=== PATIENT | male | born 1970 | race Caucasian/White ===

== ENCOUNTER 2016-10-31 14:34 | Inpatient (IN) | payer OTHER ==
[2016-10-31] VITALS (16 sets, daily range): BP systolic 85–144; BP diastolic 52–116
[~2016-10-31] VITALS: Ht 185.4 cm; Wt 267.7 kg
--- NOTE | ~2016-10-31 | HC ---
[facility] [place] [address] CONSULTATION Name: KURTZTAYLOR Room #: 435-P [facility] IN M.R.#: [id number] Admission: 10/31/16 Attend Phys: Aron Conklin DO Discharge: Date of : 66 Report #: [id number] THIS REPORT FOR: //name// CC: FAM unknown Aron Conklin REASON FOR CONSULTATION: I was asked to evaluate concerning sepsis, leukocytosis, left lower extremity cellulitis with chronic venous stasis disease and lymphedema. HISTORY OF PRESENT ILLNESS: The patient was a 46-year-old morbidly obese gentamicin with chronic lymphedema in both lower extremities, left greater than right. He states that he has had recurring cellulitis in the left lower extremity for years. His last treatment was approximately 6 months ago. He is allergic to PENICILLIN, but tolerates cephalosporins. Typically, he states when it flares up he gets a couple of shots ceftriaxone and improves. He has also been on Z-MAXIMINO with improvement. Last evening, he developed fever and shaking chills. He presented to [facility] and transferred to [facility] for further treatment. He has been tachycardic. Mental status has remained normal. He has had intermittent nonproductive cough. No chest pain. No nausea, vomiting or diarrhea. No dysuria or frequency. ALLERGIES: PENICILLIN, MUCINEX. He does tolerate cephalosporins. MEDICATIONS: As noted on his MAR, which was reviewed. He did receive ceftriaxone. He has also received vancomycin. PAST MEDICAL HISTORY: Hypertension, morbid obesity, stroke, left eye blindness, diabetes, gastroesophageal reflux, chronic back pain, osteoarthritis, obstructive sleep apnea. FAMILY HISTORY: Noncontributory. SOCIAL HISTORY: He is disabled, peterson. Nonsmoker, no significant alcohol intake. REVIEW OF SYSTEMS: Noted above. PHYSICAL EXAMINATION: VITAL SIGNS: Afebrile. Blood pressure 100-110 range, blood pressure is stable, did drop down in the 80 systolic initially. He remains on 2 liters of oxygen per nasal cannula. He is voiding and has received over 4 liters of fluid in the last 12 hours. GENERAL: He was alert and cooperative. No acute distress. Morbidly obese. HEENT: Unremarkable. Blindness in the left eye. Mouth was unremarkable. NECK: Supple. LUNGS: Clear, decreased breath sounds bilaterally. [facility] [address] [place] [address] CONSULTATION Name: TAYLOR KURTZ Jac Room #: [facility] IN M.R.#: [id number] Admission: 10/31/16 Attend Phys: Aron Conklin DO Discharge: Date of : 66 Report #: [id number] HEART: Regular, without murmur. ABDOMEN: Obese, soft, nontender, no hepatosplenomegaly or mass. Large abdominal pannus with mild anterior intertrigo. EXTREMITIES: 2+ edema on the right lower extremity with chronic venous stasis dermatitis changes. Left lower extremity had 4+ edema with cellulitis involving the left thigh. This area was mildly tender. I could not appreciate any fluctuance. There was no significant tenderness in the groin region. NEUROLOGIC: Otherwise nonfocal. LABORATORY STUDIES: Ultrasound of bilateral lower extremities showed no evidence of DVT. Lactate 1.1, sodium 132, potassium 3.7, bicarbonate 26, creatinine 1.2. Bilirubin 2.3. Liver function tests otherwise normal. Hemoglobin 12.9. WBC is 17, platelet count 176,000. Urinalysis unremarkable. BNP 1491. Chest x-ray, basilar atelectasis. IMPRESSION: A 46-year-old morbidly obese gentleman with chronic venous stasis lymphedema of both lower extremities, now with cellulitis and likely lymphangitis of left lower extremity. In addition to this, he has elevated bilirubin, unclear if this is a new process or possibly ____ hyperbilirubinemia. PLAN: Recommend continuing ceftriaxone while awaiting culture results. Obtain differential on the CBC. Follow liver function tests. Advise weight loss. Consider further cardiac evaluation. <ELECTRONICALLY SIGNED> By: Cam Pichardo MD 11/01/16 1310 [id number] Cam Pichardo MD /nt
--- NOTE | ~2016-10-31 | H ---
[facility] [place] [address] HISTORY AND PHYSICAL Name: TAYLOR KURTZ Room #: 435-P ADM IN M.R.#: [id number] Admission: 10/31/16 Attend Phys: Aron Conklin DO Discharge: Date of : 66 Report #: [id number] THIS REPORT FOR: //name// CC: FAM unknown Aron Conklin DATE OF SERVICE: 10/31/2016 DATE OF SERVICE: 10/31/2016 ATTENDING PHYSICIAN: Alexandria Cancino MD PRIMARY CARE PHYSICIAN: Aron Garcia MD CHIEF COMPLAINT: Fevers. HISTORY OF PRESENT ILLNESS: The patient is a 46-year-old morbidly obese male who weighs over 500 pounds. He presented at [facility] today complaining of chills. He said the chills started last night and he had to sleep under multiple layers of blankets and heating pad and was still having chills. Because of this, he did not sleep well all night. He assumed he was having fevers, but he does not have a thermometer at home. He denies any changes in his cough. He does have some chronic cough that occurs whenever he lies flat. He does have some chronic dyspnea, denies any increasing shortness of breath. He denies any recent vomiting or diarrhea. He denies any new pains in his extremities. He was initially evaluated at [facility], but it sounds like they were not going to be able to meet his bariatric needs. So they transferred him here for further evaluation. He was started on broad spectrum antibiotics prior to transfer. On arrival to the ICU here, his vitals were stable and he is able to answer most questions. His main complaint at this time is that he cannot use a regular bathroom to urinate. He states he has a hard time using a urinal because of his size. PAST MEDICAL HISTORY: Hypertension, CVA with blindness in the left eye, diabetes, GERD, chronic back pain, osteoarthritis, obstructive sleep apnea. PAST SURGICAL HISTORY: None. ALLERGIES: PENICILLIN AND MUCINEX. HOME MEDICATIONS: Amlodipine 5 mg p.o. in the morning and 10 mg p.o. at bedtime, potassium 10 mEq daily, Lasix 20 mg b.i.d., omeprazole 20 mg p.o. b.i.d., metformin is 500 mg p.o. daily. SOCIAL HISTORY: The patient lives at home with his children. He is single. He works as a peterson still. He is a never smoker, drinks alcohol rarely, maybe [facility] [address] [place] [address] HISTORY AND PHYSICAL Name: TAYLOR KURTZ Room #: 435-P [facility] IN [facility]#: [id number] Admission: 10/31/16 Attend Phys: Aron Conklin DO Discharge: Date of : 66 Report #: [id number] once a year. Denies any drug use. FAMILY HISTORY: Significant for heart disease and diabetes in his mother who is alive. His father is alive, but he does not keep in contact with him. REVIEW OF SYSTEMS: The patient says he always experiences excessive gas and belching. He denies any significant abdominal pain. He also reports some chronic redness or brownish discoloration around both ankles and lower extremity edema is normal for him. He also denies any history of coronary artery disease, denies any recent chest pain or palpitations. PHYSICAL EXAMINATION: GENERAL: The patient is an alert, morbidly obese male in no acute distress. VITAL SIGNS: Temperature on arrival was 37.1, heart rate 108, respirations 30, blood pressure is 118/63, oxygen 97% on room air. HEENT: PERRLA. Sclerae is nonicteric. Oral mucosa is pink and dry. NECK: Enlarged, but no JVD noted. No neck stiffness. CARDIOVASCULAR: Normal S1, S2. No murmurs, rubs or gallops. He is slightly tachycardic. RESPIRATORY: Breath sounds are clear bilateral upper lobes. He is diminished in both bases. Breathing is nonlabored. ABDOMEN: Obese, but soft and nondistended with positive bowel sounds. VASCULAR: 4+ bilateral lower extremity edema. This edema extends up into his thighs. In his left thigh, there is significantly more swelling or enlargement than the right. Pedal pulses are 1+. He does have some chronic venous stasis changes around both ankle areas as well skin changes with lichenification growth across his shins. In his upper left thigh, there is a significant area of erythema that extends up into his perineal area. 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 He does have some raw, but intact skin behind his left knee. There is really no open wound or lesions anywhere. NEUROLOGIC: The patient is alert and oriented x 3. Speech is clear. He is able to move all extremities and follow commands. No focal weakness noted. LABORATORY DATA: At [facility] showed a WBC of 17.4, hemoglobin 15, platelets 217. Sodium 135, potassium 3.4, BUN 16, creatinine 1.5, glucose is 154, bilirubin 2.1. LFTs are within normal limits. Magnesium 1.2. Initial lactate was 7.2 and INR is 1.4. IMAGING: Chest x-ray showed cardiomegaly without failure. There is mild basilar atelectasis rather than pneumonitis. ASSESSMENT AND PLAN: 1. Sepsis. This is likely due to left thigh cellulitis. Unfortunately, he is too large to have a CAT scan to further evaluate for underlying abscess or necrotizing fasciitis. We will have to follow blood cultures and labs and clinically evaluate for improvement with antibiotics, check venous Dopplers to [facility] [address] [place] [address] HISTORY AND PHYSICAL Name: TAYLOR KURTZ Room #: 435-P [facility] IN .R.#: [id number] Admission: 10/31/16 Attend Phys: Aron Conklin DO Discharge: Date of : 66 Report #: [id number] rule out deep venous thrombosis. 2. Left thigh cellulitis. See #1. 3. Diabetes. Blood sugars are stable. We do need to hold metformin because of elevated creatinine. Add sliding scale insulin and Accu-Cheks. 4. Hypomagnesemia. This will be replaced. Follow labs. 5. Mild acute kidney injury. Continue with gentle IV fluids, hold metformin and follow labs. 6. Hypertension. Blood pressure is stable. Continue with Norvasc as at home. 7. Chronic back pain. The patient says he has been taking up to 1500 mg of ibuprofen each night for sleep. He was told this amount was too much to take at one time. We will add Morphine and Tylenol p.r.n. 8. Deep venous thrombosis prophylaxis. Start Lovenox. We will continue to follow the patient closely throughout the hospitalization and make changes based on clinical status. <ELECTRONICALLY SIGNED> By: YANNA Guerrero 11/02/16 0757 [id number] YANNA Guerrero /ana
[2016-10-31] MEDS ORDERED: NORVASC5 M1 PO (18:37)
[2016-10-31] MEDS ORDERED: NORVASC10 MG PO (18:38)
[2016-10-31] MEDS ORDERED: NORVASC5 MG PO (18:38)
[2016-10-31] MEDS ORDERED: LASIX 20 MG TAB20 MG PO (18:39)
[2016-10-31] MEDS ORDERED: KLOR-CON 1010 MEQ PO (18:40)
[2016-10-31] MEDS ORDERED: PRILOSEC 20 MG20 MG PO (18:41)
[2016-10-31 19:02] LABS: ABG SAMPLE TYPE ARTERIAL; BE(vivo) 0.8 mmol/L (-2 to +3); HCO3 23.7 mmol/L (22.0-26.0); O2(CT) 19.1 mL/dL (15.0-23.0); O2Hb 91.9 % (92.0-98.0); PCO2 33.1 mmHg (35.0-45.0); PO2 62.4 mmHg (80.0-100.0); pH 7.473 (7.360-7.450); sO2 93.5 % (92.0-98.0); tCO2 24.7 mmol/L (24.0-30.0)
[2016-10-31 19:03] LABS: STICK SITE R.RADIAL
[2016-10-31 19:15] LABS: HEMATOCRIT 42.2 % (42.0-52.0); HEMOGLOBIN 13.8 gm/dL (14.0-18.0); MCH 26.7 pg (26.0-34.0); MCHC 32.8 g/dL (28.0-37.0); MCV 81.5 fL (80.0-100.0); RBC 5.18 mil/uL (4.50-6.00); WBC 22.1 thou/uL (4.0-11.0)
[2016-10-31 19:25] LABS: CALCIUM 8.2 mg/dL (8.5-10.1); CREATININE 1.4 mg/dL (0.7-1.3); POTASSIUM 4.2 mmol/L (3.5-5.1)
[2016-10-31] MEDS ORDERED: METFORMIN HCL500 MG PO (19:52)
[2016-10-31 22:41] LABS: MAGNESIUM 1.3 mg/dL (1.8-2.4)
[2016-11-01] VITALS (11 sets, daily range): BP systolic 109–138; BP diastolic 58–78
[2016-11-01 01:54] LABS: URINE BILIRUBIN 1+ (Negative); URINE BLOOD 1+ (Negative); URINE COLOR YELLOW; URINE GLUCOSE-RANDOM* NEGATIVE (Negative); URINE KETONES TRACE (Negative); URINE LEUKOCYTES-REFLEX 1+ (Negative); URINE PROTEIN (DIPSTICK) 1+ (Negative)
[2016-11-01 01:57] LABS: ICTOTEST (BILI CONFIRMATORY) Positive (Negative)
[2016-11-01 02:04] LABS: CASTS None Seen /LPF (None Seen); SQUAMOUS 0-3 Few /LPF (0-3); TRANSITIONAL EPITHEL CELL 0-3 Few /LPF (None Seen); URINE RBC 0-2 Rare /HPF (0-2); URINE WBC-REFLEX 6-15 Few /HPF (0-5)
[2016-11-01 02:05] LABS: CRYSTALS None Seen /LPF (None Seen)
[2016-11-01 04:41] LABS: HEMATOCRIT 38.7 % (42.0-52.0); HEMOGLOBIN 12.9 gm/dL (14.0-18.0); MCH 26.8 pg (26.0-34.0); MCHC 33.3 g/dL (28.0-37.0); MCV 80.5 fL (80.0-100.0); RBC 4.8 mil/uL (4.50-6.00); RDW 18.2 % (10.5-14.5)
[2016-11-01 04:49] LABS: ALBUMIN 2.6 g/dL (3.4-5.0); CALCIUM 7.7 mg/dL (8.5-10.1); CREATININE 1.2 mg/dL (0.7-1.3); POTASSIUM 3.7 mmol/L (3.5-5.1); TOTAL BILIRUBIN 2.3 mg/dL (<0.1-1.0); TOTAL PROTEIN 6.8 g/dL (6.4-8.2)
[2016-11-02 05:31] VITALS: BP 117/70
[2016-11-02 05:43] LABS: GLYCOHEMOGLOBIN (HGB A1C) 5.8 % (4.8-5.6)
[2016-11-02 07:04] LABS: HEMATOCRIT 36.9 % (42.0-52.0); HEMOGLOBIN 11.9 gm/dL (14.0-18.0); MCH 26.1 pg (26.0-34.0); MCHC 32.2 g/dL (28.0-37.0); MCV 81.2 fL (80.0-100.0); PLATELET COUNT 169 thou/uL (150-400); RBC 4.54 mil/uL (4.50-6.00); RDW 18.9 % (10.5-14.5); WBC 13.7 thou/uL (4.0-11.0)
[2016-11-02 07:07] LABS: MANUAL DIFF YES
[2016-11-02 07:18] LABS: CALCIUM 7.9 mg/dL (8.5-10.1); POTASSIUM 3.7 mmol/L (3.5-5.1)
[2016-11-02 08:11] LABS: ABSOLUTE NEUTROPHILS 12.5 thou/uL (1.4-8.2); ANISOCYTOSIS 2+; TOTAL CELL COUNT 100
[2016-11-02 08:56] VITALS: BP 124/69
[2016-11-02 16:19] VITALS: BP 133/71
[2016-11-02 19:44] VITALS: BP 141/60
[2016-11-03 03:47] VITALS: BP 143/67
[2016-11-03 06:27] LABS: HEMATOCRIT 34.7 % (42.0-52.0); HEMOGLOBIN 11.4 gm/dL (14.0-18.0); MCH 26.4 pg (26.0-34.0); MCHC 32.9 g/dL (28.0-37.0); MCV 80.2 fL (80.0-100.0); RBC 4.32 mil/uL (4.50-6.00); RDW 18.3 % (10.5-14.5); WBC 8.4 thou/uL (4.0-11.0)
[2016-11-03 06:39] LABS: CALCIUM 7.7 mg/dL (8.5-10.1); CREATININE 0.9 mg/dL (0.7-1.3); POTASSIUM 3.4 mmol/L (3.5-5.1)
[2016-11-03 08:37] VITALS: BP 120/57
[2016-11-03 16:52] VITALS: BP 126/67
[2016-11-03 20:00] VITALS: BP 138/71
[2016-11-04 04:15] VITALS: BP 140/56
[2016-11-04 08:00] VITALS: BP 134/69
[2016-11-04 13:23] VITALS: BP 113/69
== END 2016-11-04 14:20 | disposition home or self-care (01) | DRG 871 ==
LOC: ICU 14:34 → 4S 11-01 10:57
PROVIDERS: Family Medicine; Nurse Practitioner Acute Care
DX: A41.9 Sepsis, unspecified organism (principal); E43 Unspecified severe protein-calorie malnutrition; L03.116 Cellulitis of left lower limb; N17.9 Acute kidney failure, unspecified; E44.0 Moderate protein-calorie malnutrition; Z68.45 Body mass index [BMI] 70 or greater, adult; I10 Essential (primary) hypertension; E66.01 Morbid (severe) obesity due to excess calories; H54.42 Blindness, left eye, normal vision right eye; E11.9 Type 2 diabetes mellitus without complications; K21.9 Gastro-esophageal reflux disease without esophagitis; G89.29 Other chronic pain; M54.9 Dorsalgia, unspecified; M19.90 Unspecified osteoarthritis, unspecified site; G47.33 Obstructive sleep apnea (adult) (pediatric); I87.8 Other specified disorders of veins; E83.42 Hypomagnesemia; I89.1 Lymphangitis; E86.0 Dehydration; Z88.0 Allergy status to penicillin; Z88.8 Allergy status to other drugs, medicaments and biological substances; Z86.73 Personal history of transient ischemic attack (TIA), and cerebral infarction without residual deficits
CPT/HCPCS: 10078; 10100